=== PATIENT | female | born 2000 | race Caucasian/White ===

== ENCOUNTER 2022-08-26 03:19 | Emergency (ER) | payer SELFPAY ==
[~2022-08-26] VITALS: Ht 160 cm; Wt 86.0 kg
--- NOTE | 2022-08-26 04:28 | ED Cough/URI ---
General Chief Complaint: Oral/Throat Problems Stated Complaint: SORE THROAT Source: patient History of Present Illness Date Seen by Provider: Aug 26, 2022 Time Seen by Provider: 04:15 Initial Comments PT ARRIVES VIA POV WITH ANOTHER FEMALE PT C/O SORE THROAT THAT BEGAN EARLIER TODAY / Friday08/25/22 ALSO STATES SHE HAS HAD A PRODUCTIVE COUGH WITH CLEAR SPUTUM FOR THE LAST 4 DAYS NO KNOWN FEVER NO DIFFICULTY BREATHING HURTS TO SWALLOW, BUT IS ABLE TO HANDLE LIQUIDS AND SECRETIONS NO HEADACHE NO BODY ACHES NO GI SYMPTOMS SHE HAS NOT TAKEN ANYTHING FOR SYMPTOMS PT IS NOT COVID OR FLU VACCINATED SHE HAS HISTORY OF THROAT INFECTIONS, AND STATES HE HAS HAD "3 THROAT SURGERIES TO DRAIN PUS POCKETS FROM MY TONSILS"--2008, 2009 AND 2012.S HE HAS HAD A TONSILLECTOMY LMP 07/27/22. NORMAL. NO CONTROL NO CHRONIC MEDICAL PROBLEMS AND DOES NOT TAKE ANY MEDICATIONS PCP: NONE Allergies and Home Medications Allergies Coded Allergies: No Known Drug Allergies (Unverified , 08/26/22) Patient Home Medication List Home Medication List Reviewed: Yes Amoxicillin/Potassium Clav (Amox Tr-K Clv 875-125 mg Tab) 875 Mg-125 Mg Tablet, 1 EACH PO BID Prescribed by: RCISTINA PERSON on 08/26/22 0507 Prednisone (Prednisone) 20 Mg Tab, 40 MG PO DAILY Prescribed by: CRISTINA PERSON on 08/26/22 0507 Review of Systems Review of Systems Constitutional: no symptoms reported EENTM: see HPI, throat pain Respiratory: see HPI, cough Cardiovascular: no symptoms reported Gastrointestinal: no symptoms reported Genitourinary: no symptoms reported : No LMP: Jul 27, 2022 Musculoskeletal: no symptoms reported Skin: no symptoms reported Psychiatric/Neurological: No Symptoms Reported Hematologic/Lymphatic: No Symptoms Reported Immunological/Allergic: no symptoms reported Past Xfwcyuu-Wwxgfg-Iyvora Hx Patient Social History Tobacco Use?: No Use of E-Cig and/or Vaping dev: No Substance use?: No Alcohol Use?: No Past Medical History Surgeries: Yes (TONSILLAR SURGERY X 3--2008,2009, 2012) Tonsillectomy Respiratory: No Cardiac: No Neurological: No : No Genitourinary: No Gastrointestinal: No Musculoskeletal: No Endocrine: No HEENT: Yes Tonsilitis Cancer: No Psychosocial: No Integumentary: No Blood Disorders: No Physical Exam Vital Signs - First Documented 08/26/22 04:33 Temp 36.8 Pulse 109 Resp 18 B/P (MAP) 127/67 (87) Pulse Ox 98 O2 Delivery Room Air Capillary Refill : Height: '" Weight: lbs. oz. kg; BMI Method: General Appearance: WD/WN, no apparent distress, obese, other (SITTING - STYLE, SMILING, DOES NOT APPEAR ILL OR TO BE IN ANY DISCOMFORT OR DISTRESS. ) HEENT: PERRL/EOMI, TMs normal, pharyngeal erythema; No tonsillar exudate; other (CLEAR POST NASAL DRAINAGE. 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 ) Progress/Results/Core Measures Suspected Sepsis SIRS Temperature: Pulse: Respiratory Rate: Blood Pressure / Mean: Results/Orders Lab Results Laboratory Tests Test 08/26/22 04:16 Range/Units Influenza Type A (RT-PCR) Not Detected Not Detecte Influenza Type B (RT-PCR) Not Detected Not Detecte SARS-CoV-2 RNA (RT-PCR) Not Detected Not Detecte Group A Streptococcus Screen POSITIVE H NEGATIVE My Orders Orders - CRISTINA PERSON DO Rapid Strep A Screen (08/26/22 04:17) Covid 19 Inhouse Test (08/26/22 04:17) Influenza A And B By Pcr (08/26/22 04:17) Isolation Central Supply Req (08/26/22 04:17) Penicillin G Proc/Mario Alberto 1.2 Mu (Bicillin (08/26/22 05:15) Ketorolac Injection (Toradol Injection) (08/26/22 05:15) Vital Signs/I&O 08/26/22 04:33 Temp 36.8 Pulse 109 Resp 18 B/P (MAP) 127/67 (87) Pulse Ox 98 O2 Delivery Room Air Capillary Refill : Progress Note : Progress Note PLACED IN ISOLATION ROOM PPE WORN COVID, FLU AND STREP TESTING DONE. PT IS AFEBRILE NO COUGH NO DYSPNEA NO HYPOXIA DURING ER STAY NO PRIOR VISITS HERE. GIVEN: -PENICILLIN IM -TORADOL DISCUSSED TEST RESULTS, SYMPTOMATIC TREATMENT, ANTICIPATED COURSE, MEDICATIONS, NEED FOR FOLLOW UP AND RETURN PRECAUTIONS. PT STATES SHE WILL FOLLOW UP WITH [facility], SHE TAKES HER SON THERE. Departure Impression Primary Impression: Strep pharyngitis Disposition: HOME, SELF-CARE Condition: Stable Departure-Patient Inst. Decision time for Depature: 05:05 Referrals: SHIRLEY ARRIAZA,LOCAL PHYSICIAN (PCP) Primary Care Physician CARTER Patient Instructions: Strep Throat ED Add. Discharge Instructions: LOTS OF CLEAR LIQUIDS FREQUENT SALT WATER GARGLES TYLENOL AND MOTRIN NEEDED FOR PAIN OR FEVER FOLLOW UP WITH [facility] IN 3-4 DAYS IF NO BETTER, RETURN TO ER IF SYMPTOMS WORSEN All discharge instructions reviewed with patient and/or family. Voiced understanding. Scripts Prednisone (Prednisone) 20 Mg Tab 40 MG PO DAILY, #6 TAB 0 Refills Prov: CRISTINA PERSON DO 08/26/22 Amoxicillin/Potassium Clav (Amox Tr-K Clv 875-125 mg Tab) 875 Mg-125 Mg Tablet 1 EACH PO BID for 15 Days, #30 TAB Prov: CRISTINA PERSON DO 08/26/22 CRISTINA PERSON DO Aug 26, 2022 04:27
[2022-08-26] MEDS ORDERED: PRD20T PO (05:07)
[2022-08-26] MEDS ORDERED: AMOX1TAB12 PO (05:07)
[2022-08-26] MEDS ORDERED: KETOROLAC 60 MG/2 ML VIAL IM ONE (05:15)
[2022-08-26] MEDS ORDERED: PEN G PROC/BENZATH 1.2 M UNITS/2 ml (BICILLIN C-R) SYR IM ONE (05:15)
[2022-08-26 05:44] VITALS: BP 112/83
== END 2022-08-26 05:55 | disposition home or self-care (01) ==
LOC: ER 03:21
DX: J02.0 Streptococcal pharyngitis (principal); Z28.310 Unvaccinated for COVID-19; Z20.822 Contact with and (suspected) exposure to COVID-19
CPT/HCPCS: 87430; 87636; 99284